=== PATIENT | male | born 1960 | race Two or more races ===

== ENCOUNTER 2019-03-24 00:44 | Inpatient (IN) | payer MEDICARE, OTHER ==
[~2019-03-24] VITALS: Ht 177.8 cm; Wt 68.9 kg
[2019-03-24 01:05] LABS: BASOPHILS % (AUTO) 0.8 % (0.0-2.0); EOSINOPHILS # (AUTO) 0.2 K/uL (0.0-0.7); EOSINOPHILS % (AUTO) 2.7 % (0.0-7.0); HEMOGLOBIN 14.1 g/dL (12.5-16.3); LYMPHOCYTES # (AUTO) 1.9 K/uL (20.0-40.0); LYMPHOCYTES % (AUTO) 33.6 % (20.5-51.5); MEAN CORPUSCULAR HEMOGLOBIN 33.5 uug (23.8-33.4); MEAN CORPUSCULAR HGB CONC 34 g/dL (32.5-36.3); MEAN CORPUSCULAR VOLUME 99.7 fL (73.0-96.2); MONOCYTES # (AUTO) 0.3 K/uL (2.0-10.0); MONOCYTES % (AUTO) 6.1 % (0.0-11.0); NEUTROPHILS # (AUTO) 3.3 K/uL (1.8-8.9); NEUTROPHILS % (AUTO) 56.8 % (38.5-71.5); PLATELET COUNT (AUTO) 259 K/uL (152-348); RED BLOOD CELL COUNT(AUTO) 4.21 MIL/uL (4.06-5.63); WHITE BLOOD COUNT (AUTO) 5.7 K/uL (3.6-10.2)
[2019-03-24 01:07] LABS: CARBON DIOXIDE 29 mmol/L (21-32); CHLORIDE 101 mmol/L (98-107); CREATININE 0.6 mg/dL (0.6-1.3); GLUCOSE 107 mg/dL (74-106); POTASSIUM 3.6 mmol/L (3.5-5.1); UREA NITROGEN, BLOOD 12 mg/dL (7-18)
[2019-03-24 01:21] LABS: ALKALINE PHOSPHATASE 74 U/L (50-136); BILIRUBIN,DIRECT 0.2 mg/dL (0.0-0.2); BILIRUBIN,TOTAL 0.7 mg/dL (0.1-1.0); ETHANOL < 3 MG/DL (0-0)
[2019-03-24 01:22] LABS: ACETAMINOPHEN < 2.0 ug/mL (10-30); ALANINE AMINOTRANSFERASE 40 U/L (16-63); ASPARTATE AMINOTRANSFERASE 49 U/L (15-37); TOTAL PROTEIN, SERUM 6.5 g/dL (6.4-8.2)
[2019-03-24] MEDS ORDERED: BLOOD SUGAR DIAGNOSTIC 1 EACH STRIP VI ONE (02:30)
[2019-03-24] MEDS ORDERED: ACETAMINOPHEN 325 MG TABLET PO PRN (02:30)
[2019-03-24] MEDS ORDERED: MAGNESIUM HYDROXIDE 30 ML LIQUID UDC PO PRN (02:30)
[2019-03-24 04:59] VITALS: BP 133/88
[2019-03-24 07:30] VITALS: BP_SYST 110; BP_SYST 153; BP_DIAS 72; BP_DIAS 76
[2019-03-24] MEDS: METFORMIN HCL 500 MG TABLET PO SCH ×2 (11:59→17:04)
[2019-03-24] MEDS: HALOPERIDOL 5 MG TABLET PO SCH ×2 (12:27→17:04)
[2019-03-24] MEDS: BENZTROPINE MESYLATE 0.5 MG TABLET PO SCH ×2 (12:28→17:04)
[2019-03-24 16:00] VITALS: BP 128/80
[2019-03-24 20:00] VITALS: BP 130/77
[2019-03-25 07:30] VITALS: BP 115/77
[2019-03-25] MEDS: HALOPERIDOL 5 MG TABLET PO SCH ×2 (08:58→17:17)
[2019-03-25] MEDS: METFORMIN HCL 500 MG TABLET PO SCH ×2 (08:58→17:17)
[2019-03-25] MEDS: BENZTROPINE MESYLATE 0.5 MG TABLET PO SCH ×2 (08:59→17:17)
[2019-03-25 15:58] VITALS: BP 120/76
[2019-03-25 20:23] VITALS: BP 123/70
[2019-03-26 07:30] VITALS: BP 130/83
[2019-03-26] MEDS: METFORMIN HCL 500 MG TABLET PO SCH ×2 (08:34→17:15)
[2019-03-26] MEDS: BENZTROPINE MESYLATE 0.5 MG TABLET PO SCH ×2 (08:34→16:48)
[2019-03-26] MEDS: HALOPERIDOL 5 MG TABLET PO SCH ×2 (08:34→16:48)
[2019-03-26 16:00] VITALS: BP 138/79
[2019-03-26 20:33] VITALS: BP 128/63
[2019-03-26] MEDS: MAG HYDROX/AL HYDROX/SIMETH 30 ML LIQUID UDC PO PRN (21:42)
[2019-03-27] MEDS: TEMAZEPAM 7.5 MG CAPSULE PO PRN ×2 (01:11→21:22)
[2019-03-27] MEDS: METFORMIN HCL 500 MG TABLET PO SCH ×2 (08:20→17:56)
[2019-03-27] MEDS: HALOPERIDOL 5 MG TABLET PO SCH ×2 (08:20→16:36)
[2019-03-27] MEDS: BENZTROPINE MESYLATE 0.5 MG TABLET PO SCH ×2 (08:20→16:36)
[2019-03-27 08:46] VITALS: BP 130/83
[2019-03-27] MEDS: MAG HYDROX/AL HYDROX/SIMETH 30 ML LIQUID UDC PO PRN ×2 (15:55→22:16)
[2019-03-27 16:37] VITALS: BP 136/78
[2019-03-27 20:00] VITALS: BP 127/88
[2019-03-28 07:30] VITALS: BP 143/81
[2019-03-28] MEDS: BENZTROPINE MESYLATE 0.5 MG TABLET PO SCH ×2 (08:18→16:28)
[2019-03-28] MEDS: METFORMIN HCL 500 MG TABLET PO SCH ×2 (08:18→17:24)
[2019-03-28] MEDS: HALOPERIDOL 5 MG TABLET PO SCH ×2 (08:18→16:28)
[2019-03-28] MEDS ORDERED: INFLUENZA VACCINE 2019-2020 0.5 ML DISP.SYRIN IM ONE (14:15)
[2019-03-28] MEDS ORDERED: PNEUMOCOCCAL 23-VAL P-SAC VAC 0.5 ML VIAL IM ONE (15:00)
[2019-03-28 15:30] VITALS: BP 136/76
[2019-03-28 19:45] VITALS: BP 134/75
[2019-03-28] MEDS: MAG HYDROX/AL HYDROX/SIMETH 30 ML LIQUID UDC PO PRN (21:46)
[2019-03-29 07:30] VITALS: BP 108/74
[2019-03-29] MEDS: METFORMIN HCL 500 MG TABLET PO SCH ×2 (10:29→17:06)
[2019-03-29] MEDS: BENZTROPINE MESYLATE 0.5 MG TABLET PO SCH ×2 (10:29→17:06)
[2019-03-29] MEDS: HALOPERIDOL 5 MG TABLET PO SCH ×2 (10:30→17:06)
[2019-03-29 16:02] VITALS: BP 116/91
[2019-03-29 20:06] VITALS: BP 128/78
[2019-03-30 07:30] VITALS: BP 112/72
[2019-03-30] MEDS: METFORMIN HCL 500 MG TABLET PO SCH ×2 (08:03→17:08)
[2019-03-30] MEDS: HALOPERIDOL 5 MG TABLET PO SCH ×2 (08:03→17:08)
[2019-03-30] MEDS: BENZTROPINE MESYLATE 0.5 MG TABLET PO SCH ×2 (08:03→17:08)
[2019-03-30 16:00] VITALS: BP 119/74
[2019-03-30] MEDS: MAG HYDROX/AL HYDROX/SIMETH 30 ML LIQUID UDC PO PRN (19:35)
[2019-03-30 20:22] VITALS: BP 131/74
[2019-03-30] MEDS: TEMAZEPAM 7.5 MG CAPSULE PO PRN (21:44)
[2019-03-31 07:30] VITALS: BP 107/68
[2019-03-31] MEDS: METFORMIN HCL 500 MG TABLET PO SCH ×2 (09:01→18:06)
[2019-03-31] MEDS: HALOPERIDOL 5 MG TABLET PO SCH ×2 (09:03→18:05)
[2019-03-31] MEDS: BENZTROPINE MESYLATE 0.5 MG TABLET PO SCH ×2 (09:04→18:04)
[2019-03-31 16:00] VITALS: BP 109/77
[2019-03-31 20:00] VITALS: BP 111/71
[2019-03-31] MEDS: TEMAZEPAM 7.5 MG CAPSULE PO PRN (22:10)
[2019-04-01 08:00] VITALS: BP 104/68
[2019-04-01] MEDS: HALOPERIDOL 5 MG TABLET PO SCH ×2 (08:34→16:16)
[2019-04-01] MEDS: METFORMIN HCL 500 MG TABLET PO SCH ×2 (08:34→17:42)
[2019-04-01] MEDS: BENZTROPINE MESYLATE 0.5 MG TABLET PO SCH ×2 (08:34→16:16)
[2019-04-01 16:00] VITALS: BP 143/80
[2019-04-01 20:00] VITALS: BP 119/77
[2019-04-02 07:30] VITALS: BP 128/74
[2019-04-02] MEDS: HALOPERIDOL 5 MG TABLET PO SCH ×2 (08:08→16:17)
[2019-04-02] MEDS: METFORMIN HCL 500 MG TABLET PO SCH ×2 (08:08→18:05)
[2019-04-02] MEDS: BENZTROPINE MESYLATE 0.5 MG TABLET PO SCH ×2 (08:08→16:17)
[2019-04-02 16:00] VITALS: BP 124/70
[2019-04-02 20:00] VITALS: BP 139/71
[2019-04-03 07:30] VITALS: BP 120/67
[2019-04-03] MEDS: METFORMIN HCL 500 MG TABLET PO SCH ×2 (08:21→18:01)
[2019-04-03] MEDS: BENZTROPINE MESYLATE 0.5 MG TABLET PO SCH ×2 (08:21→16:49)
[2019-04-03] MEDS: HALOPERIDOL 5 MG TABLET PO SCH ×2 (08:21→16:49)
[2019-04-03 16:00] VITALS: BP 110/65
[2019-04-03 19:45] VITALS: BP 130/73
[2019-04-04] MEDS: BENZTROPINE MESYLATE 0.5 MG TABLET PO SCH ×2 (08:30→16:37)
[2019-04-04] MEDS: HALOPERIDOL 5 MG TABLET PO SCH ×2 (08:30→16:37)
[2019-04-04] MEDS: METFORMIN HCL 500 MG TABLET PO SCH (08:30)
[2019-04-04 08:52] VITALS: BP 115/71
[2019-04-04 16:09] VITALS: BP 141/77
== END 2019-04-04 16:53 | DRG 885 ==
LOC: ER 00:52 → GPS 02:20
PROVIDERS: ADMIT Psychiatry & Neurology Psychiatry; ATTEND Internal Medicine
DX: F20.0 Paranoid schizophrenia (principal); E11.65 Type 2 diabetes mellitus with hyperglycemia; F12.10 Cannabis abuse, uncomplicated; Z91.14 Patient's other noncompliance with medication regimen; Z79.84 Long term (current) use of oral hypoglycemic drugs; I10 Essential (primary) hypertension; F19.10 Other psychoactive substance abuse, uncomplicated
CPT/HCPCS: 36415; 85025; 90686; 90732; 93005; A4663; G0480; G0480-TC